=== PATIENT | male | born 1990 | race African-American/Black ===

== ENCOUNTER 2019-03-31 11:21 | Emergency (ER) | payer OTHER ==
[~2019-03-31] VITALS: Ht 195.6 cm; Wt 95.3 kg
[2019-03-31 11:24] VITALS: BP 112/75
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
[2019-03-31] MEDS ORDERED: IBUPROFEN600 MG ORAL (13:23)
[2019-03-31] MEDS ORDERED: ROBAXIN-500MG ORAL (13:23)
[2019-03-31] MEDS ORDERED: LIDODERM700 M1 TOPIC (13:23)
[2019-03-31 13:30] VITALS: BP 112/75
--- NOTE | 2019-03-31 13:30 | NUR ---
ER DISCHARGE NOTE: Patient is cleared to be discharged per ERMD, pt is aox4, on room air, with stable vital signs. pt was given dc and prescription instructions, pt was able to verbalize understanding, pt id band removed. pt is able to ambulate with steady gait. pt took all belongings.
== END 2019-03-31 13:30 | disposition home or self-care (01) ==
LOC: EDBD 11:21 → EMR 13:30
DX: S00.93XA Contusion of unspecified part of head, initial encounter (principal); S16.1XXA Strain of muscle, fascia and tendon at neck level, initial encounter; V49.9XXA Car occupant (driver) (passenger) injured in unspecified traffic accident, initial encounter; W22.10XA Striking against or struck by unspecified automobile airbag, initial encounter; Y92.410 Unspecified street and highway as the place of occurrence of the external cause
CPT/HCPCS: 70450; Z7502; 99284